=== PATIENT | female | born 1965 | race Caucasian/White ===

== ENCOUNTER 2017-10-05 13:51 | Outpatient (CLI) | payer OTHER | END 2017-10-05 13:52 | disposition home or self-care (01) | LOC: BICCT 13:51 | PROVIDERS: ATTEND Internal Medicine Hematology & Oncology | DX: C64.9 Malignant neoplasm of unspecified kidney, except renal pelvis (principal); Z90.5 Acquired absence of kidney; Z90.49 Acquired absence of other specified parts of digestive tract | CPT/HCPCS: 71046; 74176 ==

== ENCOUNTER 2017-11-01 08:30 | Outpatient (CLI) | payer OTHER | END 2017-11-01 08:31 | disposition home or self-care (01) | LOC: BICMAMMO 08:30 | PROVIDERS: ATTEND Obstetrics & Gynecology | DX: N64.89 Other specified disorders of breast (principal); Z85.038 Personal history of other malignant neoplasm of large intestine; Z85.528 Personal history of other malignant neoplasm of kidney | CPT/HCPCS: G0279 ==

== ENCOUNTER 2018-01-18 16:15 | Inpatient (IN) | payer OTHER ==
[2018-01-18 17:04] VITALS: BMI 31.0
--- NOTE | 2018-01-19 09:48 | HP ---
HISTORY OF PRESENT ILLNESS: Ms. Gandhi is a 52-year-old white female, prior MEGHANA/RSO bladder sling and anterior repair by Dr. 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 She had another colon resection after that and a right nephrectomy for renal cell carcinoma and she has been followed since that time and remains wit hout evidence of cancer recurrence. She is followed by Dr. Shearer of Oncology and Dr. Luke from [facility]. She has no abnormal Pap smears. She was seen originally in 08/2017 for complaint of some pelvic pressure in her vaginal area and noted a bulge. She had no genuine stress incontinence o r difficulty having bowel movements. PAST MEDICAL HISTORY: As per HPI. In addition, she has allergic rhinitis, GERD, anxiety, depression . PAST SURGICAL HISTORY: Noted colon resection x2; right nephrectomy; left breast biopsy, benign; righ t hand carpal tunnel syndrome surgery; right shoulder surgery; MEGHANA/RSO bladder sling procedure, and e ye LASIK surgery. SOCIAL HISTORY: She is a smoker. 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 ALLERGIES: CECLOR and ERYTHROMYCIN. FAMILY HISTORY: Hypertension in her parents. Heart disease in her father and stroke. PHYSICAL EXAMINATION: VITAL SIGNS: Her blood pressure is 145/74, pulse 81 and regular, respirations are 16, height 68 inch es, weight 210 pounds with BMI of 31.9. CHEST: Clear to auscultation. HEART: Regular rate and rhythm. S1, S2 heart sounds. No murmurs, rubs or gallops. BREASTS: No masses, nipple discharge or skin changes. ABDOMEN: No palpable masses. Well-healed laparotomy scars. No hepatosplenomegaly. PELVIC: Vulva and vagina had no lesions. Vaginal cuff was intact. She had a mild grade 2 cystocele that was asymptomatic. She had significant grade 3 rectocele. There is no abnormal vaginal dischar ge seen. No lesions seen. Cervix was surgically absent. Uterus was surgically absent. No palpable masses noted. No hernias in the well-healed midline vertical incisions of the abdomen and right nep hrectomy scars. ASSESSMENT: This is a 52-year-old white female with symptomatic grade 3 rectocele. She has a minima l grade 1 cystocele with no evidence of hypermobility of the UV angle that does not indicate repair a t this time. PLAN: Plan is to proceed with a posterior repair of the grade 3 rectocele. She is set for surgery o n 01/23/2018. Risks and benefits of the surgery are discussed in detail.
[2018-01-23] MEDS ORDERED: Levofloxacin 500 mg/D5W 100 ml Premix Bag ONE (08:46)
[2018-01-23] MEDS ORDERED: Clindamycin/D5W 900 mg/50 ml Premix Bag ONE (08:46)
[2018-01-23] MEDS ORDERED: Lidocaine 1% w/Epinephrine 1:100K 30 ML VIAL ONE (09:58)
[2018-01-23] MEDS ORDERED: Midazolam HCl 2 mg/2 ml Vial ONE (10:07)
[2018-01-23] MEDS ORDERED: Scopolamine 1.5 mg/72 hour Patch ONE (10:07)
[2018-01-23] MEDS ORDERED: Ondansetron HCl/PF 4 MG/2 ML Vial ONE (10:07)
[2018-01-23] MEDS ORDERED: Simethicone Chewable 80 MG TAB PO PRN (11:35)
[2018-01-23] MEDS ORDERED: Morphine 4 MG/ML VIAL SLOW IVP PRN (11:35)
[2018-01-23] MEDS ORDERED: Zolpidem Tartrate 5 MG TAB PO PRN (11:35)
[2018-01-23] MEDS ORDERED: diphenhydrAMINE 25 MG CAP PO PRN (11:35)
[2018-01-23] MEDS ORDERED: traMADol HCl 50 MG TAB PO PRN ×2 (11:35)
[2018-01-23] MEDS ORDERED: Ondansetron HCl/PF 4 MG/2 ML Vial IVP PRN ×2 (11:35→11:56)
[2018-01-23] MEDS ORDERED: Lactated Ringer's 1,000 ML IV SCH (11:45)
[2018-01-23] MEDS ORDERED: Promethazine HCl 25 MG/ML VIAL IM PRN (11:56)
[2018-01-23] MEDS ORDERED: Meperidine HCl/PF 25 MG/ML VIAL SLOW IVP PRN (11:56)
[2018-01-23] MEDS ORDERED: Promethazine HCl 25 MG/ML VIAL SLOW IVP PRN (11:56)
--- NOTE | 2018-01-23 12:05 | OP ---
DATE OF PROCEDURE: 01/23/2018 PREOPERATIVE DIAGNOSES: Symptomatic grade 3 rectocele. POSTOPERATIVE DIAGNOSES: Symptomatic grade 3 rectocele. PROCEDURE PERFORMED: Posterior repair. SURGEON: Shantel Bautista M.D. HOSPITALITY HOUSE SUPERVISOR: Geno Abbott M.D. ANESTHESIA: General endotracheal. ESTIMATED BLOOD LOSS: Less than 50 mL. COMPLICATIONS: None. COUNTS: Correct x2. ANTIBIOTICS: Levaquin and clindamycin production officer to the OR. FINDINGS: 1. Grade 3 rectocele, status post repair. 2. No evidence of suture placement in the rectal mucosa on digital rectal exam post procedure. DISPOSITION: Recovery room down then to the floor. DESCRIPTION OF OPERATIVE PROCEDURE: The patient had previously received informed consent in regards to surgery. She was taken back to the operating room where she received a general endotracheal anest hetic agent without complications. She was placed in the [facility] cane stirrups in dorsal lithotomy pos ition and prepped and draped in usual sterile fashion. Estrada catheter was placed. At this time, the third grade 3 rectocele was noted. The vaginal introitus at the 4 and 8 o'clock position were grasp ed with Allis clamps. The posterior vaginal mucosa was infiltrated with 1% lidocaine with epinephrin e. A midline vertical incision was made in the posterior vaginal mucosa beginning at the introitus a nd working up to the vaginal cuff line. The edges of the vaginal mucosa were grasped intervening wit h Allis clamps. The rectocele with the endopelvic fascia was then dissected sharply and bluntly from the posterior vaginal mucosa. Once this was accomplished and the rectocele defect was reduced, figu re-of-eight sutures of 0 Vicryl were then placed in the endopelvic fascia starting most cephalad uppe r vagina grasping this with a Hector retractor room keeping the rectum out of the way. The endopelvi c fascia was plicated and serial plication of the endopelvic fascia working its way back towards the opening of the vaginal outlet was carried out with 0 Vicryl sutures reducing the rectocele defect in its entirety. The vaginal mucosa was then closed with interrupted [id number] sutures of 2-0 Yo ryl starting at the apex incorporating some of the endopelvic fascia to rid the space and this t hen closed vaginal mucosa. Hemostasis was confirmed. A rectal exam was performed. There was no emilee dence of suture placement within the rectal mucosa noted on digital exam. The vagina was packed with a moistened Kerlix packing and the patient was awakened from anesthesia, transferred to the recovery room in stable condition.
[2018-01-23] MEDS: Ketorolac Tromethamine 30 MG/ML VIAL IVP SCH ×2 (15:33→18:23)
[2018-01-23 20:54] VITALS: TEMP 97.9
[2018-01-23 20:55] VITALS: BP 140/89
[2018-01-23] MEDS ORDERED: Loratadine 10 MG TAB PO SCH (21:00)
[2018-01-23] MEDS ORDERED: Docusate Calcium (SURFAK) 240 MG CAP PO SCH (21:00)
[2018-01-24] MEDS ORDERED: Vitami E (Dl,Tocopheryl Acet) 400 UNITS CAP PO SCH (09:00)
[2018-01-28] MEDS ORDERED: Ibuprofen 800 MG TAB PO SCH (21:00)
== END 2018-01-23 22:40 | disposition home or self-care (01) | DRG 748 ==
LOC: SURG A 01-23 08:26 → INTOOBSV 01-23 08:26 → 3SE 01-23 12:44 → OBSVTOIN 01-23 15:56
PROVIDERS: ADMIT Obstetrics & Gynecology; ATTEND Obstetrics & Gynecology
PROC: 0JQC0ZZ Repair Pelvic Region Subcutaneous Tissue and Fascia, Open Approach (ICD-10-PCS; principal; 2018-01-23)
DX: N81.6 Rectocele (principal); Z85.528 Personal history of other malignant neoplasm of kidney; Z90.5 Acquired absence of kidney; Z90.49 Acquired absence of other specified parts of digestive tract; J30.2 Other seasonal allergic rhinitis; K21.9 Gastro-esophageal reflux disease without esophagitis; F41.9 Anxiety disorder, unspecified; F32.9 Major depressive disorder, single episode, unspecified; F17.210 Nicotine dependence, cigarettes, uncomplicated; Z88.8 Allergy status to other drugs, medicaments and biological substances; Z88.1 Allergy status to other antibiotic agents
CPT/HCPCS: J1885; J1956; J2001; J2250; J2405; J3490

== ENCOUNTER 2018-01-18 16:46 | Outpatient (CLI) | payer OTHER ==
[2018-01-18 17:18] LABS: Hemoglobin 15.1 g/dL (12.0-16.0); Mean Corpuscular HGB CONC 35.8 g/dL (32.0-36.0); Mean Corpuscular Hemoglobin 31.9 pg (27.0-31.0); Mean Platelet Volume 7.4 fL (7.4-10.4); Platelet Count 189 thou/uL (130-400); RBC Distribution Width 11.7 % (11.5-14.5); Red Blood Cell (RBC) Count 4.75 mill/uL (4.20-5.40); White Blood Cell (WBC) Count 8.3 thou/uL (4.8-10.8)
== END 2018-01-18 16:47 | disposition home or self-care (01) ==
LOC: LABBT 16:46
PROVIDERS: ATTEND Obstetrics & Gynecology
DX: Z01.812 Encounter for preprocedural laboratory examination (principal); N81.6 Rectocele
CPT/HCPCS: 85027; 86850; 86900; 86901

== ENCOUNTER 2023-11-10 13:22 | Outpatient (CLI) | payer BC | END 2023-11-10 13:23 | disposition home or self-care (01) | LOC: SCSMRI 13:22 | PROVIDERS: ATTEND Orthopaedic Surgery | DX: M23.91 Unspecified internal derangement of right knee (principal); S83.241A Other tear of medial meniscus, current injury, right knee, initial encounter; M71.21 Synovial cyst of popliteal space [Baker], right knee; M17.11 Unilateral primary osteoarthritis, right knee; M94.261 Chondromalacia, right knee ==